=== PATIENT | female | born 1955 | race Caucasian/White ===

== ENCOUNTER → 2017-09-10 | Outpatient (CLI) | payer OTHER, BC ==
[~2017-09-10] MED LIST: ASPI-320 PO; CYAN1TAB18 PO; OMEG10007 PO; PANT1TAB4 PO; PREG1CAP36 PO; TPM25 PO
== END | disposition home or self-care (01) ==
LOC: C.LABSPEC 08:45
PROVIDERS: ATTEND Family Medicine
DX: N39.0 Urinary tract infection, site not specified (principal)

== ENCOUNTER 2024-06-29 22:06 | Observation (INO) ==
[2024-06-29] MEDS: OPTIRAY 320 125ml IV ONE (22:19)
[2024-06-29 22:25] LABS: Basophils # (auto) 0.08 K/uL (0.00-0.20); Basophils % (auto) 0.6 %; Eosinophils # (auto) 0.09 K/uL (0.00-0.50); Eosinophils % (auto) 0.7 %; Hematocrit (blood only) 43.8 % (37.0-47.0); Hemoglobin 14.7 g/dl (12.0-16.0); Immature Granulocytes # (auto) 0.04 K/uL (0.01-0.20); Immature Granulocytes % (auto) 0.3 %; Lymphocytes # (auto) 3.36 K/uL (1.20-3.40); Lymphocytes % (auto) 26.1 %; Mean Corpuscular Hemoglobin 29.9 pg (25.0-34.0); Mean Corpuscular Hgb Conc 33.6 g/dL (32.0-36.0); Mean Corpuscular Volume 89.2 fL (80.0-100.0); Mean Platelet Volume 9.8 fL (9.4-12.4); Monocytes # (auto) 0.83 K/uL (0.11-0.59); Monocytes % (auto) 6.4 %; Neutrophils # (auto) 8.49 K/uL (1.40-6.50); Neutrophils % (auto) 65.9 %; Platelet Count 428 K/uL (130-400); RDW Coefficient of Variation 12.6 % (11.5-14.5); RDW Standard Deviation 41.1 fL (36.4-46.3); Red Blood Count 4.91 M/uL (4.20-5.40); White Blood Count 12.89 K/ul (4.8-10.8)
[2024-06-29 22:29] LABS: iSTAT Creatinine 0.8 mg/dl (0.6-1.3); iSTAT Ionized Calcium 1.21 mmol/l (1.12-1.32); iSTAT Potassium 3.9 mmol/L (3.3-5.0)
[2024-06-29 22:34] LABS: Partial Thromboplastin Time 26 Seconds (21-31); Prothrombin Time 10.5 Seconds (9.0-12.0)
--- NOTE | 2024-06-29 22:40 | CT Scan Report ---
Exam(s): CT HEAD Without Contrast EXAM: CT Head Without Intravenous Contrast CLINICAL HISTORY: Reason for exam: neuro deficit, acute stroke suspected. TECHNIQUE: Axial computed tomography images of the head/brain without intravenous contrast. CTDI is 45 mGy and DLP is 774 mGy-cm. Automated exposure control was utilized for the study. A dose lowering technique was utilized adhering to the principles of ALARA. COMPARISON: 06/29/2024 FINDINGS: Brain: No hemorrhage, extra-axial fluid collection, mass effect, or edema. Ventricles: Unremarkable. Bones/joints: Unremarkable. No fracture. Soft tissues: Unremarkable. Sinuses: No acute sinusitis. Mastoid air cells: Unremarkable as visualized. IMPRESSION: 1. No acute intracranial abnormality. Communications: Call Doctor Stroke Electronically signed by: John Torres MD 06/29/24 22:39 PM
--- NOTE | 2024-06-29 22:42 | CT Scan Report ---
Exam(s): CTA HEAD With Contrast IV Amt: 118 cc opti 320 EXAM: CT Angiography Head With Intravenous Contrast CLINICAL HISTORY: Reason for exam: neuro deficit, acute stroke suspected. TECHNIQUE: Axial computed tomographic angiography images of the head with intravenous contrast. CTDI is 21 mGy and DLP is 10 mGy-cm. Automated exposure control was utilized for the study. A dose lowering technique was utilized adhering to the principles of ALARA. MIP reconstructed images were created and reviewed. CONTRAST: Patient received 118 cc opti 320 of IV contrast COMPARISON: MRI 04/12/2024 FINDINGS: Right internal carotid artery: Intracranial segment is patent with no significant stenosis. No aneurysm. Right anterior cerebral artery: No occlusion or significant stenosis. No aneurysm. Right middle cerebral artery: No occlusion or significant stenosis. No aneurysm. Right posterior cerebral artery: No occlusion or significant stenosis. No aneurysm. Right vertebral artery: Unremarkable as visualized. Left internal carotid artery: Intracranial segment is patent with no significant stenosis. No aneurysm. Left anterior cerebral artery: No occlusion or significant stenosis. No aneurysm. Left middle cerebral artery: No occlusion or significant stenosis. No aneurysm. Left posterior cerebral artery: No occlusion or significant stenosis. No aneurysm. Left vertebral artery: Unremarkable as visualized. Basilar artery: No occlusion or significant stenosis. No aneurysm. IMPRESSION: Normal head CTA. Communications: Call Doctor Stroke Electronically signed by: John Torres MD 06/29/24 22:41 PM
--- NOTE | 2024-06-29 22:43 | CT Scan Report ---
Exam(s): CTA NECK With Contrast IV Amt: 118 cc opti 320 EXAM: CT Angiography Neck With Intravenous Contrast CLINICAL HISTORY: Reason for exam: neuro deficit, acute stroke suspected. TECHNIQUE: Routine carotid CT angiography protocol was performed with intravenous contrast. NASCET criteria using the distal ICAs for comparison were used for evaluation of stenoses. CTDI is 13 mGy and DLP is 500 mGy-cm. Automated exposure control was utilized for the study. A dose lowering technique was utilized adhering to the principles of ALARA. MIP reconstructed images were created and reviewed. CONTRAST: Patient received 118 cc opti 320 of IV contrast COMPARISON: None. FINDINGS: VASCULATURE: Right common carotid artery: No occlusion or significant stenosis. No dissection. Right internal carotid artery: Extracranial segment is patent with no occlusion or significant stenosis. No dissection. Right vertebral artery: No occlusion or significant stenosis. No dissection. Left common carotid artery: No occlusion or significant stenosis. No dissection. Left internal carotid artery: Extracranial segment is patent with no occlusion or significant stenosis. No dissection. Left vertebral artery: No occlusion or significant stenosis. No dissection. NECK: Bones/joints: Unremarkable. No acute fracture. Soft tissues: Unremarkable. Lung apices: Clear. CAROTID STENOSIS REFERENCE USING NASCET CRITERIA: % ICA stenosis = (1 - narrowest ICA diameter/diameter of distal cervical ICA) x 100. Mild - <50% stenosis. Moderate - 50-69% stenosis. Severe - 70-94% stenosis. Near occlusion - 95-99% stenosis. Occluded - 100% stenosis. IMPRESSION: Negative CTA neck. Communications: Call Doctor Stroke Electronically signed by: John Torres MD 06/29/24 22:42 PM
[2024-06-29 22:48] LABS: Albumin Globulin Ratio 1.2 (0.9-2); BUN Creatinine Ratio 31.6 (10-20); Bilirubin,Total 0.4 mg/dl (0.2-1.0); Calcium 9.7 mg/dl (8.6-10.3); Creatinine Clr Calc Pharmacy 79.9 ml/min; Globulin 3.4 gm/dl (2.5-4.0); Potassium 3.9 mmol/L (3.5-5.1); Total Protein 7.4 gm/dl (6.0-8.3)
--- NOTE | 2024-06-29 22:51 | Emergency Department Note ---
History of Present Illness General Chief complaint: Stroke Alert Stated complaint: STROKE ALERT Time Seen by Provider: 06/29/24 22:10 History of Present Illness This 68-year-old female that had a touchup of her cataract surgery on Saturday by Dr. Velazquez at [facility] presents ER complaining of floaters in the right eye since yesterday with acute onset of right arm numbness and weakness for the past hour that started at 2114. Patient called her x ray equipment tester and has an appointment tomorrow. Her arm got weak and came in. Patient denies complete loss of vision, balance problems, leg weakness, left arm weakness, facial numbness or weakness. No prior stroke. No blood thinners. Patient states she did develop a headache today but has had a headache all week. No history of visual changes or arm weaknesses with her migraines in the past. Home Medications Medication Instructions Recorded Confirmed Type clobetasol 0.05 % shampoo 1 applic topical DAILY 11/05/22 06/17/24 History omega 1-nry-hmz-fish oil 1,000 mg 1 cap PO DAILY 11/05/22 06/17/24 History (120 mg-180 mg) capsule (Fish Oil) cyclobenzaprine 5 mg tablet 5 mg PO TID PRN muscle spasm #30 02/14/24 06/17/24 Rx tabs albuterol sulfate 90 mcg/actuation 2 puff inhalation Q6H PRN 02/25/24 06/17/24 Rx aerosol inhaler shortness of breath or wheezing #18 grams benzonatate 200 mg capsule 200 mg PO TID PRN cough #30 caps 02/25/24 06/17/24 Rx clobetasol 0.05 % topical spray 1 applic topical BID PRN 03/19/24 06/17/24 History clotrimazole-betamethasone 1 1 applic topical BID PRN 03/19/24 06/17/24 History %-0.05 % topical cream fluticasone propionate 50 1 spray intranasal DAILY #16 grams 03/19/24 06/17/24 Rx mcg/actuation nasal spray,suspension nystatin 100,000 unit/gram topical 1 applic topical BID PRN 03/19/24 06/17/24 History cream atorvastatin 20 mg tablet 20 mg PO DAILY #90 tabs 05/22/24 06/17/24 Rx escitalopram oxalate 10 mg tablet 10 mg PO QPM #90 tabs 05/22/24 06/17/24 Rx (Lexapro) meloxicam 15 mg tablet 15 mg PO DAILY PRN pain #30 tabs 05/22/24 06/17/24 Rx metformin 500 mg tablet 500 mg PO BID #180 tabs 05/22/24 06/17/24 Rx montelukast 10 mg tablet 10 mg PO QPM #90 tabs 05/22/24 06/17/24 Rx (Singulair) pantoprazole 20 mg tablet,delayed 20 mg PO QPM #90 tabs 05/22/24 06/17/24 Rx release rizatriptan 10 mg disintegrating 10 mg PO .COMPLEX PRN MIGRAINES 05/22/24 06/17/24 Rx tablet #27 tabs cholecalciferol (vitamin D3) 50 50 mcg PO DAILY #30 caps 05/25/24 Rx mcg (2,000 unit) capsule semaglutide (weight loss) 1 mg/0.5 1 mg (0.5 mL) subcut Q7D #2 mL 06/08/24 06/17/24 Rx mL subcutaneous pen injector (Wegovy) semaglutide (weight loss) 1.7 1.7 mg (0.75 mL) subcut Q7D #3 mL 06/17/24 06/17/24 Rx mg/0.75 mL subcutaneous pen injector (Wegovy) Allergies Allergy/AdvReac Type Severity Reaction Status Date / Time Sulfa (Sulfonamide Allergy Unknown Hives Verified 06/17/24 11:30 Antibiotics) Past Med/Surg History Problem List (Updated 06/29/24 @ 23:05 by Lorie Simpson PA-C) Visual changes (Acute) Weakness of right arm (Acute) Multiple thyroid nodules Lumbar disc disease Urinary incontinence Prediabetes Obesity Migraine headache History of DVT of lower extremity GERD (gastroesophageal reflux disease) Dyslipidemia Diverticular disease Depression Cerebellopontine angle tumor Asthma PT REPORTS HAS A CHRONIC DRY COUGH, HAS HAD FOR YRS...WILL FLARE UP [facility] ALLERGY SEASON... SINGULAIR FOR Vitamin D deficiency Chronic sinusitis Stress incontinence, female Vitamin B12 deficiency Herpes simplex Medical History (Updated 06/29/24 @ 23:05 by Lorie Simpson PA-C) Obesity Dietary counseling and surveillance Pain in both feet Nephrolithiasis Migraines Nausea and vomiting after administration of anesthetic agent Laryngopharyngeal reflux PT REPORTS ACID REFLUX Surgical History Status post right knee replacement (01/19/22) Hx of rotator cuff surgery (06/2021) R H/O cataract extraction S/P tubal ligation HX S/P left knee arthroscopy HX History of ectopic Excision of ectopic . History of left salpingo-oophorectomy S/P fine needle biopsy HX Breast H/O oral surgery H/O: hysterectomy History of cholecystectomy H/O eye surgery Tumor behind L eye. Also had biopsy performed. Previous section x 2. Family History Mother Lung cancer Father Lung cancer Diabetes Stroke Grandfather (Paternal) Pancreatic adenocarcinoma Sister Cervical cancer Meningioma Stroke Grandmother (Maternal) Parkinson disease Grandmother (Maternal) Stroke due to embolism Grandfather (Paternal) Black lung Aunt Breast cancer Denies family history of Ovarian cancer Prostate cancer Myocardial infarction Colorectal cancer Social History Smoking Status: Never smoker Second Hand Exposure: No; Do You Dip or Chew Tobacco: No; Hx Alcohol Use: Yes Alcohol type: beer and wine Alcohol Intake Frequency: Monthly or Less Hx Substance Use: No Preferred Language: Hungarian Communication Ability: Effective Visual Impairment: No Limitations Hearing Ability: Normal Abalone Fisherman Required: No Beliefs That Will Affect Care: None marital status: Current Living Situation: Spouse Current Living Situation Comment: lives with in 2 story house current occupational status: employed 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 ) during the past year weight has: remained stable Dental Care, Regularly: Yes Physical Activity Frequency: 3-4 Times per Week Physical Activity Frequency Comment: House work, walking. Seatbelt Use: always Sunscreen Use: Yes Assistive Devices: None Review of Systems A total of 10 systems reviewed and were otherwise negative Physical Exam Vital Signs Vital Signs - 24 hr 06/29/24 21:56 06/29/24 22:10 06/29/24 22:30 Temperature 36.7 C Temperature Source Oral Pulse Rate 77 77 Pulse Rate [Apical] Respiratory Rate 20 Respiratory Effort / Characteristics Non-Labored Respiratory Depth Normal Blood Pressure 120/96 Blood Pressure [Right Arm] Blood Pressure Mean 104 Blood Pressure Mean [Right Arm] Pulse Oximetry 97 Oxygen Delivery Method Room Air Room Air Sepsis Recent Fever Within 48 Hours No Sepsis New/Unexplained Change in Mental Status Yes Sepsis Action Taken by Nursing No Action Required 06/29/24 22:30 06/29/24 22:55 06/29/24 22:57 Temperature Temperature Source Pulse Rate Pulse Rate [Apical] 73 72 Respiratory Rate 20 17 Respiratory Effort / Characteristics Non-Labored Non-Labored Respiratory Depth Normal Normal Blood Pressure Blood Pressure [Right Arm] 142/69 H 158/113 H 141/70 H Blood Pressure Mean Blood Pressure Mean [Right Arm] 93 128 93 Pulse Oximetry 97 96 Oxygen Delivery Method Room Air Room Air Sepsis Recent Fever Within 48 Hours Sepsis New/Unexplained Change in Mental Status Sepsis Action Taken by Nursing VITALS: Vitals are noted on the nurse's note and reviewed by myself. Vital signs stable. GENERAL: Pleasant patient, in no acute distress, nondiaphoretic, well-developed well-nourished. SKIN: The skin was without rashes, erythema, edema, or bruising. There is no tenting of the skin. Capillary reflex less than 2 seconds. HEAD: Normocephalic atraumatic. EARS: External auditory canals clear EYES: Pupils equal round and reactive to light and accommodation. Conjunctivae without injection, sclerae without icterus. Extraocular movements intact. NOSE: Patent, no discharge. MOUTH: Mucous membranes moist. Pharynx without erythema or exudate. Uvula midline. Airway patent. Tongue does not deviate. NECK: Supple without nuchal rigidity. No lymphadenopathy. No thyromegaly. Cervical spine is nontender. No JVD. HEART: Regular rate and rhythm LUNGS: Clear to auscultation bilaterally without wheezes, rales or rhonchi. No retractions or accessory muscle use. ABDOMEN: Positive bowel sounds x 4. Normal tympanic percussion. Soft, nontender, without masses or organomegaly. Hassan sign negative. No guarding or rebound tenderness. No CVA tenderness MUSCULOSKELETAL: No muscle atrophy, erythema, or edema noted. NEURO: Patient was alert and oriented to person place and time. Normal sensation to light and sharp touch. Patient has minimal right arm drift but does not drop to the bed. Patient has difficulty with rapid altering movements with the right hand. The rest of the neuroexam is intact. No focal other neurological deficits. NIH of 2 Course Administered Medications Discontinued Medications Ioversol (Optiray 320 125ml) 118 ml IV ONCE ONE Stop: 06/29/24 22:20 Last Admin: 06/29/24 22:19 Dose: 118 ml Documented By: NAMITA Critical Care Time Critical Care Time: Yes Total Critical Care Time: 35 I have personally spent 35 minutes of critical care time in the direct management of this patient. This includes bedside care, interpretation of diagnostic studies, and testing, discussion with consultants, patient, and family members, and other required patient management activities. This 35 minutes is in excess of all separately billable procedures. Medical Decision Making Medical Records Attestation: I reviewed the patient's medical records. Home Medications Current Medication List: was personally reviewed by me Laboratory Data Attestation: I reviewed the patient's lab results. 06/29/24 22:12 06/29/24 22:12 Lab Results 06/29/24 06/29/24 Range/Units 22:12 22:17 WBC 12.89 H (4.8-10.8) K/ul RBC 4.91 (4.20-5.40) M/uL Hgb 14.7 (12.0-16.0) g/dl POC Hgb 15.0 (12.0-16.0) g/dl Hct 43.8 (37.0-47.0) % POC Hct 44 (37-47) % MCV 89.2 (80.0-100.0) fL MCH 29.9 (25.0-34.0) pg MCHC 33.6 (32.0-36.0) g/dL RDW Std Deviation 41.1 (36.4-46.3) fL RDW Coeff of Petey 12.6 (11.5-14.5) % Plt Count 428 H (130-400) K/uL MPV 9.8 (9.4-12.4) fL Immature Gran % (Auto) 0.3 % Neut % (Auto) 65.9 % Lymph % (Auto) 26.1 % Kimball % (Auto) 6.4 % Eos % (Auto) 0.7 % Baso % (Auto) 0.6 % Neut # (Auto) 8.49 H (1.40-6.50) K/uL Lymph # (Auto) 3.36 (1.20-3.40) K/uL Kimball # (Auto) 0.83 H (0.11-0.59) K/uL Eos # (Auto) 0.09 (0.00-0.50) K/uL Baso # (Auto) 0.08 (0.00-0.20) K/uL Immature Gran # (Auto) 0.04 (0.01-0.20) K/uL PT 10.5 (9.0-12.0) Seconds INR 1.0 (0.9-1.1) APTT 26 (21-31) Seconds PTT Ratio 1.0 POC Sodium 140 (135-144) mmol/L Sodium 140 (136-145) mmol/L POC Potassium 3.9 (3.3-5.0) mmol/L Potassium 3.9 (3.5-5.1) mmol/L POC Chloride 100 L (101-112) mmol/L Chloride 102 (98-107) mmol/L Carbon Dioxide 31 (21-32) mmol/L POC Total CO2 29 (24-31) mmol/L Anion Gap 7 (3-11) POC Anion Gap 16.0 (16-25) mmol/L POC BUN 25 H (7-18) mg/dl BUN 24 H (6-23) mg/dl Creatinine 0.76 (0.6-1.2) mg/dl POC Creatinine 0.8 (0.6-1.3) mg/dl Est Cr Clr Drug Dosing 79.9 ml/min eGFR 84.77 BUN/Creatinine Ratio 31.6 H (10-20) Glucose 102 H (70-99(Fasting)) mg/dl POC Glucose (other) 102 H (70-99) mg/dl Calcium 9.7 (8.6-10.3) mg/dl POC Ioniz Calcium Eric 1.21 (1.12-1.32) mmol/l Magnesium 2.0 (1.7-2.4) mg/dl Total Bilirubin 0.4 (0.2-1.0) mg/dl AST 13 (13-39) U/L ALT 12 (7-52) U/L Alkaline Phosphatase 94 (34-104) U/L Troponin I High Sens 2.8 (0-14) pg/ml Total Protein 7.4 (6.0-8.3) gm/dl Albumin 4.0 (3.4-5.0) gm/dl Globulin 3.4 (2.5-4.0) gm/dl Albumin/Globulin Ratio 1.2 (0.9-2) Blood Type O Positive Antibody Screen NEGATIVE Imaging Data Attestation: I personally reviewed and interpreted this imaging study as follows: Radiologist's Impression: Head CT 06/29/24 22:14 CR Exam(s): CT HEAD Without Contrast EXAM: CT Head Without Intravenous Contrast CLINICAL HISTORY: Reason for exam: neuro deficit, acute stroke suspected. TECHNIQUE: Axial computed tomography images of the head/brain without intravenous contrast. CTDI is 45 mGy and DLP is 774 mGy-cm. Automated exposure control was utilized for the study. A dose lowering technique was utilized adhering to the principles of ALARA. COMPARISON: 06/29/2024 FINDINGS: Brain: No hemorrhage, extra-axial fluid collection, mass effect, or edema. Ventricles: Unremarkable. Bones/joints: Unremarkable. No fracture. Soft tissues: Unremarkable. Sinuses: No acute sinusitis. Mastoid air cells: Unremarkable as visualized. IMPRESSION: 1. No acute intracranial abnormality. Communications: Call Doctor Stroke Electronically signed by: John Torres MD 06/29/24 22:39 PM Head CTA 06/29/24 22:14 CR Exam(s): CTA HEAD With Contrast IV Amt: 118 cc opti 320 EXAM: CT Angiography Head With Intravenous Contrast CLINICAL HISTORY: Reason for exam: neuro deficit, acute stroke suspected. TECHNIQUE: Axial computed tomographic angiography images of the head with intravenous contrast. CTDI is 21 mGy and DLP is 10 mGy-cm. Automated exposure control was utilized for the study. A dose lowering technique was utilized adhering to the principles of ALARA. MIP reconstructed images were created and reviewed. CONTRAST: Patient received 118 cc opti 320 of IV contrast COMPARISON: MRI 04/12/2024 FINDINGS: Right internal carotid artery: Intracranial segment is patent with no significant stenosis. No aneurysm. Right anterior cerebral artery: No occlusion or significant stenosis. No aneurysm. Right middle cerebral artery: No occlusion or significant stenosis. No aneurysm. Right posterior cerebral artery: No occlusion or significant stenosis. No aneurysm. Right vertebral artery: Unremarkable as visualized. Left internal carotid artery: Intracranial segment is patent with no significant stenosis. No aneurysm. Left anterior cerebral artery: No occlusion or significant stenosis. No aneurysm. Left middle cerebral artery: No occlusion or significant stenosis. No aneurysm. Left posterior cerebral artery: No occlusion or significant stenosis. No aneurysm. Left vertebral artery: Unremarkable as visualized. Basilar artery: No occlusion or significant stenosis. No aneurysm. IMPRESSION: Normal head CTA. Communications: Call Doctor Stroke Electronically signed by: John Torres MD 06/29/24 22:41 PM Neck CTA 06/29/24 22:14 CR Exam(s): CTA NECK With Contrast IV Amt: 118 cc opti 320 EXAM: CT Angiography Neck With Intravenous Contrast CLINICAL HISTORY: Reason for exam: neuro deficit, acute stroke suspected. TECHNIQUE: Routine carotid CT angiography protocol was performed with intravenous contrast. NASCET criteria using the distal ICAs for comparison were used for evaluation of stenoses. CTDI is 13 mGy and DLP is 500 mGy-cm. Automated exposure control was utilized for the study. A dose lowering technique was utilized adhering to the principles of ALARA. MIP reconstructed images were created and reviewed. CONTRAST: Patient received 118 cc opti 320 of IV contrast COMPARISON: None. FINDINGS: VASCULATURE: Right common carotid artery: No occlusion or significant stenosis. No dissection. Right internal carotid artery: Extracranial segment is patent with no occlusion or significant stenosis. No dissection. Right vertebral artery: No occlusion or significant stenosis. No dissection. Left common carotid artery: No occlusion or significant stenosis. No dissection. Left internal carotid artery: Extracranial segment is patent with no occlusion or significant stenosis. No dissection. Left vertebral artery: No occlusion or significant stenosis. No dissection. NECK: Bones/joints: Unremarkable. No acute fracture. Soft tissues: Unremarkable. Lung apices: Clear. CAROTID STENOSIS REFERENCE USING NASCET CRITERIA: % ICA stenosis = (1 - narrowest ICA diameter/diameter of distal cervical ICA) x 100. Mild - <50% stenosis. Moderate - 50-69% stenosis. Severe - 70-94% stenosis. Near occlusion - 95-99% stenosis. Occluded - 100% stenosis. IMPRESSION: Negative CTA neck. Communications: Call Doctor Stroke Electronically signed by: John Torres MD 06/29/24 22:42 PM MDM Narrative Prior records/ancillary studies reviewed and summarized above. Nursing notes reviewed. Additional history obtained from family. The patient's history was concerning for visual changes and right arm weakness. Differential diagnosis: Etiologies such as metabolic, infection, hypo/hyperglycemia, electrolyte abnormalities, cardiac sources, intracerebral event, toxicologic, neurologic, as well as others were entertained. Physical examination: As above. ER treatment provided: IV Lock An order was placed for continuous cardiac monitoring. The monitor shows a rate of 60-100 with a sinus rhythm per my interpretation. Stroke workup was immediately initiated and telestroke was consulted On reassessment the patient felt better. Diagnostics interpretation by me: ECG: Ordered for stroke symptoms EKG: Normal sinus, normal intervals, no acute ST-T wave changes, rate of 68. Impression normal sinus rhythm independently interpreted by myself The labs Independently Interpreted by myself revealed Stable H&H, no worrisome leukocytosis, negative troponin Imaging studies: Imaging was reviewed and read by radiology Consultation: A consultation was placed with the telestroke provider at [place], Dr Beth Armstrong MD. The case was discussed and diagnostics were reviewed. The patient was evaluated in the ER via telestroke for further treatment. He recommends brain MRI and echo and admission to medicine. he also recommends full aspirin now and then 81 mg aspirin daily along with full stroke workup. Medicine was consulted the case discussed. Patient was admitted to the medical service. Exam and history seem consistent with right arm weakness and visual changes concerning for stroke versus TIA. Telestroke does not recommend TNK. They recommend brain MRI and echo along with aspirin and full stroke workup. Medicine was consulted and case discussed. Patient was admitted to the medical service. Patient's right arm weakness did improve. By the evaluation outlined above emergent etiologies such as infection, electrolyte abnormalities, cardiac sources, toxologic, abnormalities blood glucose, metabolic, as well as others were deemed relatively unlikely. The pt informed about the findings as listed above. All questions were answered and pleased with the treatment. The chart was completed utilizing [employer] Speech voice recognition software. Grammatical errors, random word insertions, pronoun errors, and incomplete sentences are an occassional consequence of this system due to software limitations, ambient noise, and hardware issues. Any formal questions or concerns about the content, text, or information contained within the body of this dictation should be directly addressed to the physician speech language pathology assistant for clarification. Impression & Plan Weakness of right arm, Visual changes Discharge Plan Visit Data Chief Complaint: Stroke Alert Stated Complaint: STROKE ALERT ED Provider: Blayne Talamantes ED Midlevel Provider: Lorie Simpson Discharge Problem: Weakness of right arm, Visual changes Patient Disposition: Admitted As Inpatient Condition: Good Forms Stand Alone Forms: My [facility] Prescriptions Prescriptions: No Action Wegovy 1 mg/0.5 mL pen injector 1 mg subcut Q7D Qty: 2 2RF meloxicam 15 mg tablet 15 mg PO DAILY PRN (Reason: pain) Qty: 30 2RF atorvastatin 20 mg tablet 20 mg PO DAILY Qty: 90 1RF escitalopram oxalate [Lexapro] 10 mg tablet 10 mg PO QPM Qty: 90 1RF metformin 500 mg tablet 500 mg PO BID Qty: 180 3RF montelukast [Singulair] 10 mg tablet 10 mg PO QPM Qty: 90 3RF pantoprazole 20 mg tablet,delayed release (DR/EC) 20 mg PO QPM Qty: 90 1RF rizatriptan 10 mg tablet,disintegrating 10 mg PO .COMPLEX PRN (Reason: MIGRAINES) Qty: 27 1RF Rx Instructions: 10 mg PO at onset of headache. Repeat in 2 hrs PRN. Wegovy 1.7 mg/0.75 mL pen injector 1.7 mg subcut Q7D Qty: 3 2RF Wegovy 0.25 mg/0.5 mL pen injector 0RF cyclobenzaprine 5 mg tablet 5 mg PO TID PRN (Reason: muscle spasm) Qty: 30 0RF albuterol sulfate 90 mcg/actuation HFA aerosol inhaler 2 puff inhalation Q6H PRN (Reason: shortness of breath or wheezing) Qty: 18 3RF benzonatate 200 mg capsule 200 mg PO TID PRN (Reason: cough) Qty: 30 0RF nystatin 100,000 unit/gram cream 1 applic topical BID PRN clotrimazole-betamethasone 1-0.05 % cream 1 applic topical BID PRN fluticasone propionate 50 mcg/actuation spray,suspension 1 spray intranasal DAILY Qty: 16 2RF Rx Instructions: administer into each nostril clobetasol 0.05 % shampoo 1 applic TOPICAL DAILY omega 7-gkg-afo-fish oil [Fish Oil] 1,000 mg (120 mg-180 mg) Capsule 1 cap PO DAILY clobetasol 0.05 % spray,non-aerosol 1 applic TOPICAL BID PRN Referrals Referrals: Mindy Martinez DO [Primary Care Provider] -
[2024-06-29 22:55] LABS: Troponin I High Sensitivity 2.8 pg/ml (0-14)
--- NOTE | 2024-06-29 23:25 | History & Physical Report ---
Date of Service June 29, 2024 Assessment & Plan (1) CVA (cerebral vascular accident): (2) Prediabetes: (3) Asthma: (4) Cerebellopontine angle tumor: Plan Patient is a 68-year-old female with past medical history of prediabetes, HLD, asthma, B12 deficiency, migraines, GERD, depression, cerebellopontine angle tumor. Patient presented as a stroke alert with visual disturbances since 06/28 and right numbness, tingling, and heaviness that began at 06/29. Symptoms resolved in ED, patient not a candidate for TNK. Of note patient had cataract surgery Saturday. Patient is being admitted for stroke workup including brain MRI and echocardiogram with bubble study. #Stroke workup - CT head, Head/Neck CTA negative. No TNK given symptoms resolved. Telestroke recommending admission for MRI and echocardiogram, aspirin load followed by 81mg daily. - Brain MRI ordered - showed small patchy acute nonhemorrhagic cortical and subcortical infarcts in left parietal lobe - stroke without TNK order set - active ROM, no IVs right side, Q4H neuro checks - asa load given in ED - start ASA 81mg daily - home atorvastatin 20mg daily increased to 40 mg daily - Allow for permissive hypertension with goal parameters 220/110 - Telemetry monitoring - echo with bubble study ordered - defer lipid panel and A1c as checked 05/22/24 Lipid panel showed TG 219, T cholesterol 107, LDL 25, HDL 38 A1c 5.7% #Prediabetes - Most recent A1C 5.7%. - continue Metformin 500 mg BID - on Wegovy at home on Sundays #Asthma - stable - continue home singular and inhaler #GERD - stable - continue home PPI #Depression - stable - continue home Lexapro #Thrombocytosis platelet 428 on admission. Chronic. Follow with PCP #cerebellopontine angle tumor - stable, follows with PCP and neurology. Most recent MRI noted 2014. - MRI showed slight interval increase in size to 11x8 mm VTE ppx: SCDs - obs status, able to ambulate, and defer with CVA workup Dispo: med/tele - possible dc 06/30 after MRI and echo Admission and Anticipated Discharge Date Admission Date: 06/29/24 History of Present Illness Chief Complaint: stroke alert Primary Care Provider: Mindy Martinez DO Patient is a 68-year-old female with past medical history of prediabetes on Wegovy, HLD, asthma, B12 deficiency, migraines, GERD, depression, cerebellopontine angle tumor. Patient presented as a stroke alert with visual d isturbances since 06/28 and right numbness, tingling, and heaviness that began at 06/29. Symptoms resolved in ED, patient not a candidate for TNK. Of note patient had cataract surgery Saturday. Patient is being admitted for stroke workup including brain MRI and echocardiogram with bubble study. Patient seen at bedside with her daughter and granddaughter present. She stated she was at the movie theater this evening when she developed a headache at approximately 7 PM, took her migraine medications and went about her night. Approximately 2114 she was going to the bathroom and developed right arm numbness, tingling, weakness, and heaviness to where she could not move her right arm. She also noticed a right facial droop in the mirror. Patient had cataract surgery on Saturday and stated last evening she had an episode of black spot in her right eye that quickly resolved, she also had this before and after the event this evening. Symptoms are improved and almost completely resolved, h owever her arm feels slightly heavy still. Her friend that was in the bathroom with her, stated she had difficulty finding her words for approximately 1 minute. She denies any dizziness, lightheadedness, chest pain, shortness of breath, lower extremity symptoms. She denies any nicotine use, drinks alcohol socially. She did not take any of her home medications yet today. She wishes to be DNR/DNI. Patient previously followed with neurologist Dr. Beyer for cerebellopontine angle tumor however now just follows with PCP. Most recent MRI in 2015 stable. Allergies Allergy/AdvReac Type Severity Reaction Status Date / Time Sulfa (Sulfonamide Allergy Unknown Hives Verified 06/29/24 23:33 Antibiotics) Home Medications Medication Instructions Recorded Confirmed Type clobetasol 0.05 % shampoo 1 applic topical DAILY 11/05/22 06/29/24 History omega 5-zwe-wpy-fish oil 1,000 mg 1 cap PO DAILY 11/05/22 06/29/24 History (120 mg-180 mg) capsule (Fish Oil) cyclobenzaprine 5 mg tablet 5 mg PO TID PRN muscle spasm #30 02/14/24 06/29/24 Rx tabs albuterol sulfate 90 mcg/actuation 2 puff inhalation Q6H PRN 02/25/24 06/29/24 Rx aerosol inhaler shortness of breath or wheezing #18 grams benzonatate 200 mg capsule 200 mg PO TID PRN cough #30 caps 02/25/24 06/29/24 Rx clobetasol 0.05 % topical spray 1 applic topical BID PRN NEEDED 03/19/24 06/29/24 History PER PT clotrimazole-betamethasone 1 1 applic topical BID PRN SKIN 03/19/24 06/29/24 History %-0.05 % topical cream IRRITATIONS nystatin 100,000 unit/gram topical 1 applic topical BID PRN Skin 03/19/24 06/29/24 History cream Irritation atorvastatin 20 mg tablet 20 mg PO DAILY #90 tabs 05/22/24 06/29/24 Rx escitalopram oxalate 10 mg tablet 10 mg PO QPM #90 tabs 05/22/24 06/29/24 Rx (Lexapro) metformin 500 mg tablet 500 mg PO BID #180 tabs 05/22/24 06/29/24 Rx montelukast 10 mg tablet 10 mg PO QPM #90 tabs 05/22/24 06/29/24 Rx (Singulair) pantoprazole 20 mg tablet,delayed 20 mg PO QPM #90 tabs 05/22/24 06/29/24 Rx release rizatriptan 10 mg disintegrating 10 mg PO .COMPLEX PRN MIGRAINES 05/22/24 06/29/24 Rx tablet #27 tabs cholecalciferol (vitamin D3) 50 50 mcg PO DAILY #30 caps 05/25/24 06/29/24 Rx mcg (2,000 unit) capsule fluticasone propionate 50 1 spray intranasal DAILY PRN Nasal 06/29/24 06/29/24 History mcg/actuation nasal Congestion spray,suspension semaglutide (weight loss) 1.7 1.7 mg subcut WK 06/29/24 06/29/24 History mg/0.75 mL subcutaneous pen injector (Manuel) Past Med/Surg History Problem List (Updated 06/30/24 @ 01:08 by Navya Carpenter PA-C) CVA (cerebral vascular accident) Transient ischemic attack (TIA) Visual changes (Acute) Weakness of right arm (Acute) Multiple thyroid nodules Lumbar disc disease Urinary incontinence Prediabetes Obesity Migraine headache History of DVT of lower extremity GERD (gastroesophageal reflux disease) Dyslipidemia Diverticular disease Depression Cerebellopontine angle tumor Asthma PT REPORTS HAS A CHRONIC DRY COUGH, HAS HAD FOR YRS...WILL FLARE UP [facility] ALLERGY SEASON... SINGULAIR FOR Vitamin D deficiency Chronic sinusitis Stress incontinence, female Vitamin B12 deficiency Herpes simplex Medical History (Updated 06/30/24 @ 01:08 by Navya Carpenter PA-C) Obesity Dietary counseling and surveillance Pain in both feet Nephrolithiasis Migraines Nausea and vomiting after administration of anesthetic agent Laryngopharyngeal reflux PT REPORTS ACID REFLUX Surgical History Status post right knee replacement (01/19/22) Hx of rotator cuff surgery (06/2021) R H/O cataract extraction S/P tubal ligation HX S/P left knee arthroscopy HX History of ectopic Excision of ectopic . History of left salpingo-oophorectomy S/P fine needle biopsy HX Breast H/O oral surgery H/O: hysterectomy History of cholecystectomy H/O eye surgery Tumor behind L eye. Also had biopsy performed. Previous section x 2. Family History Mother Lung cancer Father Lung cancer Diabetes Stroke Grandfather (Paternal) Pancreatic adenocarcinoma Sister Cervical cancer Meningioma Stroke Grandmother (Maternal) Parkinson disease Grandmother (Maternal) Stroke due to embolism Grandfather (Paternal) Black lung Aunt Breast cancer Denies family history of Ovarian cancer Prostate cancer Myocardial infarction Colorectal cancer Social History Smoking Status: Never smoker Second Hand Exposure: No; Do You Dip or Chew Tobacco: No; Hx Alcohol Use: Yes Alcohol type: beer and wine Alcohol Intake Frequency: Monthly or Less Hx Substance Use: No Preferred Language: Ethiopian Communication Ability: Effective Visual Impairment: No Limitations Hearing Ability: Normal Grocery Stocker Required: No Beliefs That Will Affect Care: None marital status: Current Living Situation: Spouse Current Living Situation Comment: lives with in 2 story house current occupational status: employed 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 ) during the past year weight has: remained stable Dental Care, Regularly: Yes Physical Activity Frequency: 3-4 Times per Week Physical Activity Frequency Comment: House work, walking. Seatbelt Use: always Sunscreen Use: Yes Assistive Devices: None Review of Systems Review of Systems: see HPI Physical Exam Physical Exam: The patient is awake, alert and oriented 3, well developed and well nourished, normocephalic and atraumatic, in no acute distress. Non-toxic appearing. HEENT- EOMI, mucous membranes moist. Hearing grossly intact. Heart-normal S1 and S2. No murmurs, rubs or gallops. Lungs-clear bilaterally, no respiratory distress, no accessory muscle use. Abdomen-normal bowel sounds and soft. No ascites noted. Non-tender. Extremities- no clubbing, cyanosis, or edema. Rheumatologic-normal range of motion. Psychiatric-normal affect. Musculoskeletal: no cyanosis or clubbing, extremities motor strength 5/5 Neurologic: PERRL, EOMI, accommodation nl, no face palsy, no dysarthria no focal motor deficits and not confused Motor/Sensory: normal movement, no pronator drift and no sensory deficit Results & Data Results & Data Vital Signs (Past 12 Hours) Vital Signs Temp Pulse Pulse Resp BP BP Pulse Ox 06/29/24 22:57 141/70 H 06/29/24 22:55 72 17 158/113 H 96 06/29/24 22:30 73 20 142/69 H 97 06/29/24 22:30 06/29/24 22:10 77 06/29/24 21:56 36.7 C 77 20 120/96 97 O2 Del Method 06/29/24 22:57 06/29/24 22:55 Room Air 06/29/24 22:30 Room Air 06/29/24 22:30 Room Air 06/29/24 22:10 06/29/24 21:56 Room Air Laboratory Results Reviewed CBC, CMP, PT/INR, magnesium, troponin, blood type and screen Diagnostic Findings reviewed head CT, head CTA, neck CTA, CXR Medications Administered EDaspirin 325 mg p.o. ECG Additional Comments: ordered Code Status & VTE Plan Code Status full code VTE Prophylaxis Plan VTE Prophylaxis will be ordered: Yes Supervising Physician Co-Signing Physician Notes I personally saw and examined the patient. I independently reviewed the labs, EKG, imaging, problem list, medication list, past medical history and family history. I verified all munson points and agree with Navya Carpenter PA-C with the following exceptions and/or additions: 68 year old right handed female presents to the ER with right upper extremity weakness starting today, right sided vision blurring occurring yesterday O/E HS RRR, no murmurs, Chest CTAB, Abdo SNT, CN2->12 intact, right sided pronator drift otherwise no objective A/P Acute CVA - stroke alert in the ER, telestroke did not recommend TNK, stroke order set used, TTE, ASA, atorvastatin, monitor for a. fib on telemetry, PT/OT T2DM - holding metformin given IV contrast with CTA, otherwise as above Right eye vision blurring - now resolved, suspect this is related to her recent surgery and will need to follow up with ophthalmology on discharge PG Care Time/CCT Total # of Minutes Spent Total Time Spent with Patient: Total time spent is greater than 50% in coordination of care (as documented) at patient's floor/unit and/or counseling patient: Coding Level of Care Code 80931 INT INP/OBS CARE MIN Diagnoses CVA (cerebral vascular accident) I63.9 Prediabetes R73.03 Asthma J45.909 Cerebellopontine angle tumor D33.3
[2024-06-30] MEDS: ASPIRIN/ALUM/MAGNES/CAL CARB 325 MG TAB PO STA (00:25)
--- NOTE | 2024-06-30 00:45 | XRay Report ---
Exam(s): XR CXR 1 VIEW EXAM: XR Chest, 1 View CLINICAL HISTORY: Reason for exam: neuro deficit, acute stroke suspected. TECHNIQUE: Frontal view of the chest. COMPARISON: 01/12/2022. FINDINGS: Lungs: No consolidation. Pleural space: No pleural effusion is seen. No pneumothorax. Heart: Heart is top normal in size.. Mediastinum: There is uncoiling of thoracic aorta.. Bones/joints: There are degenerative changes in the spine.. IMPRESSION: No acute pulmonary disease.. Findings appears similar to previous exam Electronically signed by: Freedom Hernandez MD 06/30/24 00:43 AM
--- NOTE | 2024-06-30 01:01 | Magnetic Resonance Report ---
Exam(s): MRI HEAD Without Contrast EXAM: MR Head Without Intravenous Contrast CLINICAL HISTORY: stroke. TECHNIQUE: Magnetic resonance images of the head/brain without intravenous contrast in multiple planes. COMPARISON: CT/CTA Brain 06-29-2024. MRI brain 04/12/2014. FINDINGS: Brain: Age-appropriate central and peripheral atrophy. Small patchy acute nonhemorrhagic cortical and subcortical infarcts in the left parietal lobe without mass-effect. Mild degree of supratentorial periventricular and subcortical white matter hyperintensities on FLAIR and T2-weighted images. 11 x 8 mm extra-axial soft tissue mass in the left cerebellar pontine angle cistern. No acute hemorrhage or abnormal extra-axial fluid collection. Ventricles: No midline shift. No ventriculomegaly. Bones/joints: Unremarkable. No acute fracture. Sinuses: Unremarkable as visualized. No acute sinusitis. Mastoid air cells: Unremarkable as visualized. No mastoid effusion. Orbits: Unremarkable as visualized. IMPRESSION: 1. Small patchy acute nonhemorrhagic cortical and subcortical infarcts in the left parietal lobe without mass-effect. 2. Nonspecific white matter changes most commonly seen with small vessel disease. 3. Compared to MRI brain 04/12/2014, slight interval increase in size of a 11 x 8 mm left cerebellar pontine angle cistern mass, most commonly a meningioma or acoustic schwannoma. Communications: Call Doctor Stroke Electronically signed by: Kendall Meyers M.D. 06/30/24 01:00 AM
[2024-06-30] MEDS ORDERED: DOCUSATE SODIUM 100 MG CAP PO PRN (01:57)
[2024-06-30] MEDS ORDERED: PHARMACIST DISCHARGE MED REC CONSULT PRN (01:57)
[2024-06-30] MEDS ORDERED: ALBUTEROL HFA 8 GM INHALER INH PRN (01:57)
[2024-06-30] MEDS ORDERED: MELATONIN 3 MG TAB PO PRN (01:57)
[2024-06-30] MEDS ORDERED: ONDANSETRON INJ 2 MG/ML 2 ML VIAL IV PRN (01:57)
[2024-06-30] MEDS ORDERED: FLUTICASONE PROPIONATE NA SPR 16 GM BTL PRN (01:57)
[2024-06-30] MEDS ORDERED: ACETAMINOPHEN 325 MG TAB PO PRN (01:57)
[2024-06-30] MEDS ORDERED: BENZONATATE 100 MG CAPSULE PO PRN (01:57)
[2024-06-30] MEDS ORDERED: CARBOHYDRATES FOR HYPOGLYCEMIA PO PRN (02:15)
[2024-06-30] MEDS ORDERED: GLUCOSE 40% GEL 15 GM TUBE PO PRN (02:15)
[2024-06-30] MEDS ORDERED: DEXTROSE 50% 50 ML SYRINGE IV PRN (02:15)
[2024-06-30] MEDS ORDERED: GLUCAGON FOR INJ 1 MG VIAL SQ PRN (02:15)
[2024-06-30] MEDS ORDERED: GLUCOSE 10 TAB/TUBE PO PRN (02:15)
--- NOTE | 2024-06-30 02:21 | Emergency Department Note ---
ED Visit Note Physician Evaluation Note: Patient was seen in conjunction with the midlevel provider. Please see the midlevel provider note for full details of the patient's visit. I have personally evaluated and examined this patient. Patient presented to the ED with concern for acute stroke, patient had some visual changes that began yesterday and then some right upper extremity weakness that began acutely prior to arrival to the ED. On my assessment the patient is alert, she does exhibit some right upper extremity drift with testing against gravity. Symmetrical facial movements are appreciated on my evaluation. Patient was assessed by [place] tele-stroke neurology (Dr. Armstrong) and ultimately determined not to be a candidate for tNK given rapid improvement in her presenting symptoms, in addition to concern for initial neurologic symptoms that began yesterday with her visual changes, thereby placing her outside the potential 4.5-hour window for lysis. CT imaging of the head as well as CT angiography were negative for large vessel occlusion or intracranial hemorrhage here in the ED. Patient was placed for admission to the [facility] for secondary workup over concern for strokelike symptoms. Patient was placed for admission in stable condition. I agree with assessment and plan of KIKO Bear DO .
[2024-06-30] MEDS: ATORVASTATIN 40 MG TAB PO STA (03:41)
[2024-06-30] MEDS: PANTOprazole 40 MG TAB PO STA (03:41)
[2024-06-30] MEDS: ESCITALOPRAM OXALATE 10 MG TAB PO STA (03:41)
[2024-06-30] MEDS: MONTELUKAST SODIUM 10 MG TABLET PO STA (03:41)
[2024-06-30] MEDS: CYCLOBENZAPRINE HCL 5 MG TAB PO PRN (03:42)
[2024-06-30 07:09] LABS: Basophils # (auto) 0.09 K/uL (0.00-0.20); Basophils % (auto) 0.7 %; Eosinophils # (auto) 0.15 K/uL (0.00-0.50); Eosinophils % (auto) 1.1 %; Hematocrit (blood only) 40.8 % (37.0-47.0); Hemoglobin 13.4 g/dl (12.0-16.0); Immature Granulocytes # (auto) 0.04 K/uL (0.01-0.20); Immature Granulocytes % (auto) 0.3 %; Lymphocytes # (auto) 3.49 K/uL (1.20-3.40); Lymphocytes % (auto) 26.7 %; Mean Corpuscular Hemoglobin 29.5 pg (25.0-34.0); Mean Corpuscular Hgb Conc 32.8 g/dL (32.0-36.0); Mean Corpuscular Volume 89.9 fL (80.0-100.0); Mean Platelet Volume 9.9 fL (9.4-12.4); Monocytes # (auto) 0.82 K/uL (0.11-0.59); Monocytes % (auto) 6.3 %; Neutrophils # (auto) 8.48 K/uL (1.40-6.50); Neutrophils % (auto) 64.9 %; Platelet Count 405 K/uL (130-400); RDW Coefficient of Variation 12.8 % (11.5-14.5); RDW Standard Deviation 42.4 fL (36.4-46.3); Red Blood Count 4.54 M/uL (4.20-5.40); White Blood Count 13.07 K/ul (4.8-10.8)
[2024-06-30 07:29] LABS: BUN Creatinine Ratio 33.3 (10-20); Chol HDL Ratio 2.4 (0-5); Creatinine Clr Calc Pharmacy 90.9 ml/min; Potassium 4.2 mmol/L (3.5-5.1)
[2024-06-30] MEDS: INSULIN ASPART PER UNIT CHARGE SC SCH (08:56)
[2024-06-30] MEDS ORDERED: metFORMIN HCL 500 MG TAB PO SCH (09:00)
--- NOTE | 2024-06-30 09:07 | Pharmacy Report ---
- Date of Service June 30, 2024 - Pharmacy CVA/TIA Medication Review Medications to Prevent Stroke handout has been added to the patients discharge packet. Antiplatelet(s) * aspirin 81mg PO daily Cholesterol * High intensity statin: atorvastatin 40 mg daily (increase from home dose 20mg) DVT Prophylaxis * SCD knee Therapeutic Anticoagulation * No history of Afib/Aflutter noted Type 2 Diabetes * Patient does not have T2DM, recent A1c 5.7% (05/22/24)
[2024-06-30 10:33] LABS: Appearance Urine Clear (Clear); Bacteria Urine Automated None Seen (None Seen); Bilirubin Urine Negative (Negative); Blood Urine 1+ (Negative); Cast Urine Automated 0-2 /lpf (0-2); Color Urine Yellow; Epithelial Cell Urine Auto 0-2 /hpf (0-2); Glucose Urine UA Negative (Negative); Ketones Urine Negative (Negative); Leukocyte Esterase Urine Trace (Negative); Nitrite Urine Negative (Negative); Protein Urine Negative (Negative); Specific Gravity Urine 1.031 (1.000-1.030); Urobilinogen Urine Negative (Negative); WBC Urine Automated 0-5 /hpf (0-5); pH Urine 5.5 (4.5-7.5)
[2024-06-30 11:38] VITALS: RESP 20; TEMP 98.4; O2SAT 96
[2024-06-30] MEDS: ATORVASTATIN 40 MG TAB PO SCH (12:05)
[2024-06-30] MEDS: ASPIRIN 81 MG ECTAB PO SCH (12:05)
--- NOTE | 2024-06-30 13:15 | Electrocardiogram Report ---
Test Reason : Blood Pressure : */* mmHG Vent. Rate : 68 BPM Atrial Rate : 68 BPM P-R Int : 202 ms QRS Dur : 92 ms QT Int : 422 ms P-R-T Axes : 71 -2 13 degrees QTcB Int : 448 ms Normal sinus rhythm Minimal voltage criteria for LVH, may be normal variant ( R in aVL ) Borderline ECG When compared with ECG of 05-Nov-2022 19:01, No significant change was found Confirmed by Chavo Handy ([id number]) on 06/30/2024 1:15:11 PM Referred By: REFERRED SELF Confirmed By: Chavo Handy
--- NOTE | 2024-06-30 14:02 | XCELERA ---
[id number] \\[email or web address]\[id number]
[2024-06-30] MEDS ORDERED: STROKE PATIENT DISCHARGE STA (14:28)
[2024-06-30 14:55] VITALS: BP 141/70
--- NOTE | 2024-06-30 15:04 | Discharge Summary ---
Discharge Summary Date of Service June 30, 2024 Principal Dx & Hospital Course #1 = Principal Diagnosis (1) CVA (cerebral vascular accident): (2) Prediabetes: (3) Asthma: (4) Cerebellopontine angle tumor: Plan 68 years old right-handed female with past medical history of DNR/DNI @ home, obesity with BMI 33.6 (height 162.6 cm; weight 88.7 kg), allergic rhinitis on fluticasone 50ug/spray, 1 spray to each nostril daily prn allergic rhinitis, pre-diabetes on metformin 500mg PO bid and Wegovy 1.7mg SQ weekly, hyperlipidemia on atorvastatin 20mg PO daily, mild intermittent asthma, never intubated or mechanically ventilated, on albuterol MDI 90ug/puff, 2 puffs PO q6 prn SOB/wheeze, singulair 10mg PO qpm, chronic thrombocytosis with baseline platelet count range 401-483 (09/09/2019 - 05/22/2024), migraine headache on rizatriptan 10mg PO q2 prn migraine headaches, GERD, major depression on escitalopram 1mg PO qpm, and cerebellopontine angle tumor, followed previously by [facility] Neurologist Dr. Bernardino Beyer, now followed by per PCP Dr. Mindy Martinez. Patient presented as a stroke alert to [facility] ER on 06/29/2024 with complaints of: 1. visual disturbances since 06/28/2024. 2. right-sided numbness, tingling, and heaviness since 06/29/2024, 9:15pm. Patient seen at bedside with her daughter and granddaughter present. She stated she was at the movie theater this evening when she developed a headache at approximately 7 PM, took her migraine medications and went about her night. Approximately 2114 she was going to the bathroom and developed right arm numbness, tingling, weakness, and heaviness to where she could not move her right arm. She also noticed a right facial droop in the mirror. Patient had cataract surgery on Saturday and stated last evening she had an episode of black spot in her right eye that quickly resolved, she also had this before and after the event this evening. Symptoms are improved and almost completely resolved, however her arm feels slightly heavy still. Her friend that was in the bathroom with her, stated she had difficulty finding her words for approximately 1 minute. She denies any dizziness, lightheadedness, chest pain, shortness of breath, lower extremity symptoms. She denies any nicotine use, drinks alcohol socially. She did not take any of her home medications yet today. She wishes to be DNR/DNI. Patient's symptoms above (e.g., visual disturbances since 06/28/2024; right- sided numbness, tingling, and heaviness since 06/29/2024, 9:15pm) all resolved in [facility] ER; patient was not a candidate for TNK. Of note patient underwent cataract surgery on Saturday (06/26/2024). Patient was subsequently admitted to the inpatient hospitalist service @ [facility] on 06/29/2024 with the following diagnosis: 1. Acute left parietal ischemic, non-hemorrhagic CVA. The following medical issues were addressed while the patient remained in [facility] from admission date 06/29/2024 through discharge date 06/30/2024: #Stroke workup - CT head, Head/Neck CTA negative. No TNK given symptoms resolved. - Brain MRI without contrast (06/29/2024, 11:02pm): - small patchy acute nonhemorrhagic cortical and subcortical infarcts in left parietal lobe - stroke without TNK order set - active ROM, no IVs right side, Q4H neuro checks - ASA 325mg PO x 1 dose (06/30/2024, 12:25am) given in ED - started ASA 81mg PO daily (06/30/2024, 12:05pm). - home-scheduled atorvastatin 20mg PO daily was increased to 40 mg PO daily (06/30/2024, 3:41am). - Allowed for permissive hypertension with goal parameters 220/110 - Telemetry monitoring while in [facility] with no arrhythmias noted - TTE (06/30/2024, 2:02pm): 1. LV EF 60-65%. Mild concentric LVH. No regional wall motion abnormalities noted. 2. RV systolic function normal. 3. Borderline LA enlargement. Borderline RA enlargement. Injection of contrast documented an interatrial shunt. 4. No /AR. 5. PV not well visualized. 6. No MS/MR. 7. No TS/TR. 8. Aortic root and proximal ascending aorta normal size. PA not well visualized. IVC size and collapsibility with sniff indicates normal RAP 3 mm Hg. 9. No pericardial effusion. (as per CAR[facility] Dr. Chavo Handy). - defer lipid panel and A1c as was tested earlier on 05/22/2024 Lipid panel: total cholesterol 107, LDL 25, HDL 38, TG 219 A1c 5.7% (05/22/2024, 7:47am). #Prediabetes - Most recent A1C 5.7%. - Patient was advised to hold OFF resuming her home-scheduled metformin 500 mg BID for at least 72 hours past administration of IV contrast (during CTA head/neck on 06/29/2024, 10:14pm) in order to avoid potential development of contrast nephropathy. Hence, patient was advised that she could resume her home-scheduled metformin 500mg PO bid on 07/02/2024 am. Patient reports that she willl comply with this recommendation. - In the interim, patient will continue taking her Wegovy 1.7mg SQ Sundays. #Asthma - stable - continue home-scheduled singulair 10mg PO qam and albuterol MDI 90ug/puff, 1 puff PO q6 prn SOB/wheeze #GERD - stable - continue home-scheduled protonix 40mg PO daily #Depression - stable - continue home-scheduled escitalopram 10mg PO qpm #Chronic thrombocytosis with baseline platelet count range 401-483 (09/09/2019 - 05/22/2024) cf., admission platelet 428 (06/29/2024, 10:12pm). cf., discharge platelet 405 (06/30/2024, 6:25am). Follows with PCP Dr. Mindy Martinez #cerebellopontine angle tumor - stable, follows with PCP and neurology. Most recent MRI noted 2014. - MRI showed slight interval increase in size to 11x8 mm VTE ppx: SCDs - obs status, able to ambulate, and defer with CVA workup Dispo: med/tele Admission HPI Per Admitting Provider 68 years old right-handed female with past medical history of DNR/DNI @ home, obesity with BMI 33.6 (height 162.6 cm; weight 88.7 kg), allergic rhinitis on fluticasone 50ug/spray, 1 spray to each nostril daily prn allergic rhinitis, pre-diabetes on metformin 500mg PO bid and Wegovy 1.7mg SQ weekly, hyperlipidemia on atorvastatin 20mg PO daily, mild intermittent asthma, never intubated or mechanically ventilated, on albuterol MDI 90ug/puff, 2 puffs PO q6 prn SOB/wheeze, singulair 10mg PO qpm, migraine headache on rizatriptan 10mg PO q2 prn migraine headaches, GERD, major depression on escitalopram 1mg PO qpm, and cerebellopontine angle tumor, followed previously by [facility] Neurologist Dr. Bernardino Beyer, now followed by per PCP Dr. Mindy Martinez. Patient presented as a stroke alert to [facility] ER on 06/29/2024 with complaints of: 1. visual disturbances since 06/28/2024. 2. right-sided numbness, tingling, and heaviness since 06/29/2024, 9:15pm. Patient seen at bedside with her daughter and granddaughter present. She stated she was at the movie theater this evening when she developed a headache at approximately 7 PM, took her migraine medications and went about her night. Approximately 2114 she was going to the bathroom and developed right arm numbness, tingling, weakness, and heaviness to where she could not move her right arm. She also noticed a right facial droop in the mirror. Patient had cataract surgery on Saturday and stated last evening she had an episode of black spot in her right eye that quickly resolved, she also had this before and after the event this evening. Symptoms are improved and almost completely resolved, however her arm feels slightly heavy still. Her friend that was in the bathroom with her, stated she had difficulty finding her words for approximately 1 minute. She denies any dizziness, lightheadedness, chest pain, shortness of breath, lower extremity symptoms. She denies any nicotine use, drinks alcohol socially. She did not take any of her home medications yet today. She wishes to be DNR/DNI. Patient's symptoms above (e.g., visual disturbances since 06/28/2024; right- sided numbness, tingling, and heaviness since 06/29/2024, 9:15pm) all resolved in [facility] ER; patient was not a candidate for TNK. Of note patient underwent cataract surgery on Saturday (06/26/2024). Patient was subsequently admitted to the inpatient hospitalist service @ [facility] on 06/29/2024 with the following diagnosis: 1. Acute left parietal ischemic, non-hemorrhagic CVA. Discharge Exam Constitutional General: Comfortable, coherent, cooperative; wide awake and alert. Not confused, lethargic, or obtunded. Patient speaks in complete, fluent, and articulate sentences without pause, cough, or wheeze, with O2 sat 96% on room air (06/30/2024, 2:54pm). HEENT: Normocephalic, atraumatic. Extra-ocular muscles intact. Pupils equally round and reactive to light. No nystagmus, gaze paresis, anisocoria, miosis, mydriasis, hyphema, scleral injection, conjunctivitis, or pterygium. No otorrhea or rhinorrhea. No pharyngeal erythema, edema, or discharge. Neck: Supple, no stridor, bruit, goiter, or hepato-jugular reflux. Jugular venous pressure is estimated to be 3 cm above the sternal angle of Carlos Eduardo, which in turn, is 5 cm above the level of the right atrium; with jugular venous pressure estimated to be 8 cm, then, there is no jugular venous distention on 06/30/2024. Lymphatics: No cervical (anterior/posterior), supraclavicular, infraclavicular, axillary, epitrochlear, or inguinal adenopathy. Chest: Symmetric rise and fall with respirations. Non-tender to palpation. Lungs: Clear to auscultation and percussion. No audible expiratory wheeze, egophony, pectoriloquy, increase in tactile fremitus, or flatness/dullness to percussion. Heart: Regular rate and rhythm. S1 and S2 noted. No S3 or S4 summation gallop. No tripartite friction rub. Grade II/ early systolic murmur @ LLSB without radiation to the carotids, axilla, or back, and which remains invariant in regards to the respiratory cycle. Abdomen: Soft, generalized tenderness, non-distended. No rebound, guarding, Hassan's sign, or organomegaly. Bowel sounds auscultated in all 4 q uadrants. Extremities: No clubbing, cyanosis, or edema. 2+ pedal pulses bilaterally. Skin: No decubitus ulcer, exanthem, or enanthem. Genito-urinary: No urethral discharge. No wood catheter. Neurology: Alert and oriented in regards to person, place, time, and situation. DTR+ and symmetric. 5/5 motor strength in all 4 extremities, both proximally and distally. No pronator drift. No facial droop. No dysarthria. Psychiatry: No homicidal ideation. No suicidal ideation. No flat affect; smiles appropriately. Discharge Plan Discharge Items Patient Disposition: Home - Self-Care Reason For Visit: STROKE WORKUP Discharge Diagnosis: Acute left parietal ischemic, non-hemorrhagic CVA Condition on Discharge: Good Activity: Resume your previous activity Lifting: Gradually increase as tolerated Bathing: No limitations Sexual Activity: When tolerated Exercise/Sports: Gradually increase as tolerated Driving/Machine Use: No limitations Weightbearing: Full weightbearing Non-emergency contact: Primary Care Provider Call non-emergency contact if: you have any medication questions Follow-up/Referrals: Mindy Martinez DO [Primary Care Provider] - 07/08/24 8:20 am Diet: Heart Healthy Addtl Attending Provider Instructions: See your PCP Dr. Mindy Martinez within 5 days of hospital discharge for routine follow-up visit. Pending Studies at Discharge: No Stand-Alone Forms: My threadsy, Smoking Cessation, Medications to Prevent Stroke Medications and DC Order Prescriptions: New atorvastatin 40 mg Tablet 40 mg PO QAM Qty: 30 0RF aspirin 81 mg Tablet,Delayed Release (Dr/Ec) 81 mg PO QAM Qty: 30 0RF Continued escitalopram oxalate [Lexapro] 10 mg tablet 10 mg PO QPM Qty: 90 1RF montelukast [Singulair] 10 mg tablet 10 mg PO QPM Qty: 90 3RF pantoprazole 20 mg tablet,delayed release (DR/EC) 20 mg PO QPM Qty: 90 1RF rizatriptan 10 mg tablet,disintegrating 10 mg PO .COMPLEX PRN (Reason: MIGRAINES) Qty: 27 1RF Rx Instructions: 10 mg PO at onset of headache. Repeat in 2 hrs PRN. cyclobenzaprine 5 mg tablet 5 mg PO TID PRN (Reason: muscle spasm) Qty: 30 0RF albuterol sulfate 90 mcg/actuation HFA aerosol inhaler 2 puff inhalation Q6H PRN (Reason: shortness of breath or wheezing) Qty: 18 3RF benzonatate 200 mg capsule 200 mg PO TID PRN (Reason: cough) Qty: 30 0RF nystatin 100,000 unit/gram cream 1 applic topical BID PRN (Reason: Skin Irritation) clotrimazole-betamethasone 1-0.05 % cream 1 applic topical BID PRN (Reason: SKIN IRRITATIONS) clobetasol 0.05 % shampoo 1 applic TOPICAL DAILY omega 2-yqv-sgw-fish oil [Fish Oil] 1,000 mg (120 mg-180 mg) Capsule 1 cap PO DAILY clobetasol 0.05 % spray,non-aerosol 1 applic TOPICAL BID PRN (Reason: NEEDED PER PT) fluticasone propionate 50 mcg/actuation spray,suspension 1 spray intranasal DAILY PRN (Reason: Nasal Congestion) Rx Instructions: administer into each nostril Wegovy 1.7 mg/0.75 mL pen injector 1.7 mg subcut WK Rx Instructions: SUNDAYS Held metformin 500 mg tablet 500 mg PO BID Qty: 180 3RF Hold Instructions: Resume on 07/03/24. DO NOT take metformin 500mg PO bid until 07/03/2024, 7:00am. You need to hold OFF metformin 500mg PO bid for at least 72 hours since IV contrast exposure during 06/29/2024, 10:14pm CTA head/neck. Discontinued atorvastatin 20 mg tablet 20 mg PO DAILY Qty: 90 1RF Discharge Orders: Discharge Order (Routine); Ordered 06/30/24 Ordered By: Brigido Montanez Admission Data Admit Date/Time: 06/29/24 23:35 Attending Provider: Brigido Montanez Admjori Provider: Leeroy uH Primary Care Provider: Mindy Martinez Other Providers: Leeroy Hu Other Interventions: Discharge Summary Assessment (RN) Last Done: 06/30/24 14:54 Hospital Stay Data Consultations 06/29/24 23:04 ED Decision to Admit Stat Diagnostic Imagining Performed 06/29/24 22:14 CT angio head w con Stat CT angio neck with con Stat CT head/brain wo con Stat 06/29/24 23:02 MR brain wo con Stat Pending Results Patient Have Any Pending Studies at Discharge: No Discharge Instructions Given to Patient (Per Discharging Provider) See your PCP Dr. Minyd Martinez within 5 days of hospital discharge for routine follow-up visit. Total Time Total Time Spent Total Time Spent (In Minutes): 35 minutes. Of this time period, 19 minutes were spent in coordinating patient's discharge. Coding Level of Care Code 04107 INP/OBS DISCH >30 MIN Diagnoses CVA (cerebral vascular accident) I63.9 Prediabetes R73.03 Asthma J45.909 Cerebellopontine angle tumor D33.3
[2024-06-30 16:33] VITALS: PULSE 77
[2024-06-30] MEDS ORDERED: MONTELUKAST SODIUM 10 MG TABLET PO SCH (21:00)
[2024-06-30] MEDS ORDERED: PANTOprazole 40 MG TAB PO SCH (21:00)
[2024-06-30] MEDS ORDERED: ESCITALOPRAM OXALATE 10 MG TAB PO SCH (21:00)
--- NOTE | 2024-07-02 08:59 | Pharmacy Report ---
Pharmacist Stroke Counseling - Date of Service July 02, 2024 - Scope: Pharmacy has been consulted to provide medication discharge counseling for this patient admitted with ischemic stroke as per the Pharmacist Discharge Counseling for Stroke Patients Protocol. - Medications on Discharge: Home Medications Medication Instructions Recorded Confirmed clobetasol 0.05 % shampoo 1 applic topical DAILY 11/05/22 06/29/24 omega 0-pif-dhm-fish oil 1,000 mg 1 cap PO DAILY 11/05/22 06/29/24 (120 mg-180 mg) capsule (Fish Oil) clobetasol 0.05 % topical spray 1 applic topical BID PRN NEEDED 03/19/24 06/29/24 PER PT clotrimazole-betamethasone 1 1 applic topical BID PRN SKIN 03/19/24 06/29/24 %-0.05 % topical cream IRRITATIONS nystatin 100,000 unit/gram topical 1 applic topical BID PRN Skin 03/19/24 06/29/24 cream Irritation fluticasone propionate 50 1 spray intranasal DAILY PRN Nasal 06/29/24 06/29/24 mcg/actuation nasal Congestion spray,suspension semaglutide (weight loss) 1.7 1.7 mg subcut WK 06/29/24 06/29/24 mg/0.75 mL subcutaneous pen injector (Manuel) New Rx's Medication Instructions Recorded cyclobenzaprine 5 mg tablet 5 mg PO TID PRN muscle spasm #30 02/14/24 tabs albuterol sulfate 90 mcg/actuation 2 puff inhalation Q6H PRN 02/25/24 aerosol inhaler shortness of breath or wheezing #18 grams benzonatate 200 mg capsule 200 mg PO TID PRN cough #30 caps 02/25/24 escitalopram oxalate 10 mg tablet 10 mg PO QPM #90 tabs 05/22/24 (Lexapro) metformin 500 mg tablet 500 mg PO BID #180 tabs 05/22/24 montelukast 10 mg tablet 10 mg PO QPM #90 tabs 05/22/24 (Singulair) pantoprazole 20 mg tablet,delayed 20 mg PO QPM #90 tabs 05/22/24 release rizatriptan 10 mg disintegrating 10 mg PO .COMPLEX PRN MIGRAINES 05/22/24 tablet #27 tabs cholecalciferol (vitamin D3) 50 50 mcg PO DAILY #30 caps 05/25/24 mcg (2,000 unit) capsule aspirin 81 mg tablet,delayed 81 mg PO QAM #30 tabs 06/30/24 release atorvastatin 40 mg tablet 40 mg PO QAM #30 tabs 06/30/24 - Action: The above medications, specifically ones for stroke treatment/prophylaxis, have been reviewed in detail with the patient and/or patient counter sales representative(s) prior to discharge. This includes indication, common adverse reactions, drug interactions, and medication administration. Medication counseling has been employed using the teach-back method to ensure understanding. - Outcome: The patient and/or patient counter sales representative(s) have demonstrated understanding of the medications. Additional comments: - Patient confirmed that new medications were picked up from the pharmacy - She mentioned some stomach upset with aspirin prescription. Confirmed that she has enteric-coated formulation and reinforced taking with food. - Metformin to be restarted tomorrow, which she noted. Primary care follow-up appointment scheduled. - All questions answered. No obvious barriers to medication compliance noted at this time. Thank you for allowing pharmacy to be involved in the care of this patient. Please call [phone] with any additional questions
== END 2024-06-30 17:37 | disposition home or self-care (01) ==
LOC: ED 22:06 → 2W 22:06 → SUATTDRO 23:35 → 2W 06-30 01:04